=== PATIENT | male | born 1950 | race Caucasian/White ===

== ENCOUNTER 2023-09-03 10:23 | Outpatient (CLI) | payer OTHER ==
[2023-09-03] MEDS ORDERED: Magnevist 469MG/ML 20 ML VIAL ONE (10:30)
== END 2023-09-03 10:24 | disposition home or self-care (01) ==
LOC: CSHMRI 10:23
DX: H66.90 Otitis media, unspecified, unspecified ear (principal); H74.92 Unspecified disorder of left middle ear and mastoid; H83.8X2 Other specified diseases of left inner ear
CPT/HCPCS: 70553; 82565